=== PATIENT | male | born 1960 | race Caucasian/White ===

== ENCOUNTER 2017-11-14 10:51 | Day surgery (SDC) | payer OTHER | END 2017-11-14 16:50 | disposition home or self-care (01) | LOC: AMB-ENDOS 10:51 → CIR.AMB 11:45 → AMB-ENDOS 11:45 | DX: D12.0 Benign neoplasm of cecum (principal); K64.8 Other hemorrhoids; C78.7 Secondary malignant neoplasm of liver and intrahepatic bile duct ==

== ENCOUNTER 2021-01-06 11:45 | Outpatient (CLI) | payer OTHER | END 2021-01-06 11:50 | disposition home or self-care (01) | LOC: TOM 11:45 | DX: N20.0 Calculus of kidney (principal); K57.90 Diverticulosis of intestine, part unspecified, without perforation or abscess without bleeding; K82.8 Other specified diseases of gallbladder ==

== ENCOUNTER 2022-09-21 10:05 | Outpatient (CLI) | payer OTHER | END 2022-09-21 10:26 | disposition home or self-care (01) | LOC: TOM 10:05 | DX: N20.0 Calculus of kidney (principal) ==

== ENCOUNTER 2023-11-22 13:34 | Outpatient (CLI) | payer OTHER | END 2023-11-22 13:35 | disposition home or self-care (01) | LOC: NUCLEAR 13:34 | PROVIDERS: ATTEND General Practice | DX: M85.9 Disorder of bone density and structure, unspecified (principal); M81.0 Age-related osteoporosis without current pathological fracture ==